=== PATIENT | female | born 1950 | race Two or more races ===

== ENCOUNTER 2019-03-02 05:20 | Day surgery (SDC) | payer OTHER ==
[~2019-03-02 05:20] MED LIST: ADULT ASPIRIN81 MG; BUSPIRONE HCL5 MG; CLONAZEPAM2 MG; COZAAR50 MG; DILTIAZEM ER300 M2; EFFEXOR XR75 MG; FLECTOR1 EACH; FOSAMAX70 MG; GLIMEPIRIDE4 MG; GRALISE600 MG; LANTUS SOL100 UNIT/1; LIPITOR40 MG; NABUMETONE750 MG; PENTOXIFYLLINE400 MG; REMERON15 M1; SYNTHROID88 MCG; VASOFLEX TABLE1 EACH; VITAMIN B-121000 MC4; VITAMIN D350000 UNIT; ZANTAC300 MG
== END 2019-03-02 13:30 | disposition home or self-care (01) ==
LOC: CIR.AMB 05:20
DX: H90.11 Conductive hearing loss, unilateral, right ear, with unrestricted hearing on the contralateral side (principal); H74.11 Adhesive right middle ear disease